=== PATIENT | male | born 2000 | race Caucasian/White ===

== ENCOUNTER 2020-06-22 12:40 | Emergency (ER) | payer OTHER ==
[~2020-06-22] VITALS: Ht 190.5 cm; Wt 86.2 kg
[2020-06-22 13:00] VITALS: BP 110/69
--- NOTE | 2020-06-22 13:16 | Emergency Room Report ---
History of Present Illness General Chief Complaint: Flu Like Symptoms Source: Patient Present Illness HPI 18-year-old male presents to the emergency department complaining of increased shortness of breath and cough x5 days. Patient reports that he tested positive for COVID-19 5 days ago. Patient reports at the time he was not feeling any symptoms. Patient reports only significant history of exercise-induced asthma and reports being previously prescribed Xopenex inhaler. Patient reports chills he denies fevers. He reports easily fatigued and out of breath. He reports intermittent productive cough. He denies chest pain. Patient denies taking any [id number] medications for his symptoms. He reports he has been self isolating. No other aggravating or relieving factors at this time. Denies palpitations, dizziness, FERGUSON or swelling of the lower extremities. Denies hx of blood clotting disorders. Denies smoking history. Allergies: Coded Allergies: No Known Allergies (Unverified , 06/22/20) COVID-19 Screening Contact w/high risk pt: No Experienced COVID-19 symptoms?: Yes COVID-19 Testing performed SURFACE GRINDER: Yes - jun 17, 2020 COVID-19 Screening: Positive COVID-19 COVID-19 Testing Source: nasopharyngeal Patient History Past Medical History: see triage record, asthma Past Surgical History: none Pertinent Family History: none Reviewed Nursing Documentation: PMH: Agreed; PSxH: Agreed Nursing Documentation-PMH Past Medical History: No Stated History Hx Asthma: Yes Review of Systems All Other Systems: negative except mentioned in HPI Physical Exam Vital Signs Date Time Temp Pulse Resp B/P (MAP) Pulse Ox O2 Delivery O2 Flow Rate FiO2 06/22/20 12:47 97.9 70 19 110/69 (83) 98 Room Air Sp02 EP Interpretation: reviewed, normal General Appearance: no apparent distress, alert, GCS 15, non-toxic Head: normocephalic, atraumatic Eyes: bilateral eye normal inspection, bilateral eye PERRL ENT: hearing grossly normal, normal pharynx, normal voice Neck: full range of motion, no meningismus, no bony tend Respiratory: lungs clear, normal breath sounds, no accessory muscle use, no wheezing, speaking full sentences Cardiovascular #1: regular rate, rhythm, no edema, normal capillary refill Musculoskeletal: normal range of motion, gait/station normal, non-tender Neurologic: alert, motor strength/tone normal, oriented x3, sensory intact, responsive, speech normal Psychiatric: judgement/insight normal Skin: no rash, normal color Medical Decision Making PA Attestation Dr. Alicia is my supervising Physician whom patient management has been discussed with. Diagnostic Impression: Primary Impression: Upper respiratory tract infection due to COVID-19 virus Additional Impression: History of asthma ER Course 18-year-old male presents to the emergency department complaining of increased shortness of breath and cough x5 days. Patient reports that he tested positive for COVID-19 5 days ago. Patient reports at the time he was not feeling any symptoms. Patient reports only significant history of exercise-induced asthma and reports being previously prescribed Xopenex inhaler. Patient reports chills he denies fevers. He reports easily fatigued and out of breath. He reports intermittent productive cough. He denies chest pain. Patient denies taking any [id number] medications for his symptoms. He reports he has been self is olating. No other aggravating or relieving factors at this time. Denies palpitations, dizziness, FERGUSON or swelling of the lower extremities. Denies hx of blood clotting disorders. Denies smoking history. Ddx considered but are not limited to URI, pneumonia, PE, strep pharyngitis, meningitis, COVID-19 Vital signs: Pt. is afebrile, the remaining VS are WNL H&PE are most consistent with URI- no meningeal signs, oropharynx is not involved, no evidence of bacterial infection at this time. ORDERS: none required at this time, the diagnosis is clinical ED INTERVENTIONS: None required at this time. --PT. EDUCATION: Discussed antibiotic resistance with inappropriate prescribing of antibiotics for viral illnesses. Discussed signs and symptoms to indicate viral illness versus bacterial illness. DISCHARGE: At this time pt. is stable for d/c to home. Will provide printed patient care instructions, and any necessary prescriptions. Care plan and follow up instructions have been discussed with the patient prior to discharge. Chest X-Ray Diagnostic Results Chest X-Ray Diagnostic Results : Chest X-Ray Ordered: Yes # of Views/Limited/Complete: 1 View Indication: Shortness of Breath EP Interpretation: Yes TRUNG Xray: Interpretation reviewed, by supervising MD, and agrees with findings. Interpretation: no consolidation, no effusion, no pneumothorax, no acute cardiopulmonary disease Impression: No acute disease Electronically Signed by: Flor Hernandez PA-C Last Vital Signs Date Time Temp Pulse Resp B/P (MAP) Pulse Ox O2 Delivery O2 Flow Rate FiO2 06/22/20 12:47 97.9 70 19 110/69 (83) 98 Room Air Status: unchanged Disposition: HOME, SELF-CARE Condition: Stable Referrals: [facility] [place] Patient Instructions: Medical Screening Exam Additional Instructions: Take medications as directed. Do not drink alcohol, drive, or operate heavy machinery while taking Cough syrup as this may cause drowsiness. Please see attached at home care instructions for COVID- 19 Follow up with a Primary Care Provider in 3-5 days, even if your symptoms have resolved. --Please review list of primary care clinics, if you do not already have a primary care provider Return sooner to ED if new symptoms occur, or current symptoms become worse. Do not drink alcohol, drive, or operate heavy machinery while taking Cough syrup as this may cause drowsiness. - Please note that this Emergency Department Report was dictated using [email or web address] software, occasionally this can lead to erroneous entry secondary to interpretation by the dictation equipment. Flor Hernandez Jun 22, 2020 13:16
[2020-06-22] MEDS ORDERED: ZITHROMAX250 MG ORAL (13:35)
[2020-06-22] MEDS ORDERED: XOPENEX HFA15 GM IH (13:35)
[2020-06-22] MEDS ORDERED: PROMETHAZINE-C118 M1 ORAL (13:35)
[2020-06-22] MEDS ORDERED: PREDNISONE20 MG ORAL (13:35)
[2020-06-22 13:49] VITALS: BP 112/70
--- NOTE | 2020-06-22 15:21 | Diagnostic Imaging Report ---
Indication: Reason For Exam: PAIN Technique: Single AP view of the chest. Comparison: None. Findings: The cardiomediastinal silhouette is within normal limits. There is no focal consolidation, pneumothorax or pleural effusion. Osseous structures demonstrate no acute abnormality. IMPRESSION: No radiographic evidence of acute cardiopulmonary process.
== END 2020-06-22 13:49 | disposition home or self-care (01) ==
LOC: EMR 13:26
DX: U07.1 COVID-19 (principal); J06.9 Acute upper respiratory infection, unspecified; J45.909 Unspecified asthma, uncomplicated
CPT/HCPCS: 71045; 99283